=== PATIENT | male | born 1940 | race Caucasian/White ===

== ENCOUNTER 2020-07-28 07:29 | Emergency (ER) | payer MEDICARE, SELFPAY ==
[2020-07-28] VITALS (9 sets, daily range): BP systolic 188–224; BP diastolic 83–103; PULSE 45–77; RESP 13–20; TEMP 37.1; O2SAT 97–100; BMI 21.1
--- NOTE | 2020-07-28 08:31 | ED.ABDPAIN ---
HPI - Abdominal Pain General Chief Complaint: Abdominal Pain Stated Complaint: hernia is bothering him Time Seen by Provider: 07/28/20 08:28 Source: patient Mode of arrival: Ambulatory Limitations: no limitations History of Present Illness HPI narrative: This is a pleasant 79-year-old male who comes in with complaint of hernia that is causing him pain. Patient states he has had a right sided groin hernia for several months. He states it will typically self reduce and has not been painful. Today it did not self reduce and was painful. Patient came for evaluation. While he has been lying in the bed waiting to be seen he states that it reduced and is no longer tender painful. He states no fevers or chills. He denies any nausea or vomiting. He denies any abdominal pain is states all of his pain was at the area of the hernia. Patient states that he has not had a bowel movement for 24 hours but has been passing gas. He states today he did have some radiation into the testicle but it has since resolved. On prior episodes he has not had any pain into the testicle. Patient has a history of CABG, he takes an aspirin daily and denies other anticoagulants, he takes medications for hypertension, dyslipidemia and bmu-[id number] diabetes. Patient is currently asymptomatic. He is very interested in having this repaired. Related Data Home Medications Medication Instructions Recorded Confirmed CA PANTOTHENATE/FOLIC ACID/VIT 1 tab PO QDAY #0 01/16/11 (MULTIVITAMIN) [Glyburide] 10 mg PO HS #0 01/16/11 [Glyburide] 20 mg PO QAM #0 01/16/11 [LODIPINE] 2.5 mg #0 01/16/11 aspirin 325 mg PO QDAY #0 01/16/11 atenolol 25 mg PO QDAY #0 01/16/11 atorvastatin [Lipitor] 40 mg PO QDAY #0 01/16/11 lisinopril 40 mg PO QDAY #0 01/16/11 amlodipine 2.5 mg tablet 2.5 mg PO DAILY 04/29/19 04/29/19 glipizide 10 mg tablet 40 mg PO DAILY tab 04/29/19 04/29/19 Allergies Allergy/AdvReac Type Severity Reaction Status Date / Time No Known Drug Allergies Allergy Verified 07/28/20 07:56 Review of Systems Review of Systems ROS Unobtainable: All systems reviewed & are unremarkable except as noted in HPI and below Patient History Medical History (Updated 07/28/20 @ 11:12 by Tenisha Tiwari DO) Diabetes DJD of shoulder Dyslipidemia Hypertension Shoulder impingement syndrome Surgical History (Updated 07/28/20 @ 09:27 by Tenisha Tiwari DO) Hx of CABG Social History Smoking Status: Never smoker Smoking Status: Never smoker alcohol intake frequency: 0-2 drinks per day Alcohol type: hard liquor Substance Use Type: does not use Exam Narrative Exam Narrative: GENERAL: Alert and oriented x three, thin, elderly male in mild distress. HEENT: Head normocephalic, atraumatic, EOMI, pupils reactive, face symmetric, moist mucous membranes NECK: Supple, full range of motion CARDIOVASCULAR: Regular rate and rhythm without murmurs, rubs or gallops. RESPIRATORY: Breath sounds equal bilaterally, no wheezes rales or rhonchi. ABDOMEN: Soft, nontender to palpation. Unable to palpate a inguinal hernia on the left or right, no clear defect felt in the right inguinal region or groin. Patient states it was initially on the right and states that the swelling/lump has resolved. hyperactive bowel sounds all 4 quadrants. No tympany. Non-distended abdomen. No guarding or rebound, rigidity, no mass : No CVA tenderness EXTREMITIES: Normal range of motion, no clubbing or edema. Neurovascularly intact NEUROLOGICAL: Cranial nerves II through XII grossly intact. Moving all extremities SKIN: Warm, dry, no petechiae, no rashes or lesions. Initial Vital Signs Initial Vital Signs: Vital Signs Temperature 98.7 F 07/28/20 07:56 Pulse Rate 66 07/28/20 07:56 Respiratory Rate 16 07/28/20 07:56 Blood Pressure 210/103 H 07/28/20 07:56 Pulse Oximetry 100 07/28/20 07:56 Course Orders Ordered: ED Orders 07/28/20 10:22 COVID19 Stat 07/28/20 10:23 EKG-12 Lead Stat Discontinued Medications Hydralazine HCl (Hydralazine 20 Mg/Ml Vial) 10 mg IV NOW ONE Stop: 07/28/20 10:24 Last Admin: 07/28/20 10:29 Dose: 10 mg Documented by: ANUJA Sodium Chloride (Normal Saline 0.9%) 1,000 mls @ 1,000 mls/hr IV BOLUS ONE Stop: 07/28/20 11:22 Last Infusion: 07/28/20 11:22 Dose: 0 mls/hr Documented by: Admin: 07/28/20 10:28 Dose: 1,000 mls/hr Documented by: ANUJA Consultations Consultation #1: Spoke with Dr. Durant who is covering for [facility], patient's baseline creatinine is 1.5 she states his potassiums all have been above 5 regularly typically are in the 5.5 range. Time: 10:50 Vital Signs Vital signs: Vital Signs - 8 hr 07/28/20 10:45 07/28/20 10:52 07/28/20 11:00 Pulse Rate 64 69 69 Respiratory Rate 13 18 17 Blood Pressure 224/100 H 215/93 H 222/91 H Pulse Oximetry 99 99 98 07/28/20 11:15 Pulse Rate 77 Respiratory Rate 20 Blood Pressure 215/91 H Pulse Oximetry 98 MDM - Abdominal Pain Lab Data Attestation: I reviewed the patient's lab results. Result diagrams: 07/28/20 08:21 07/28/20 08:21 Labs: Lab Results 07/28/20 07/28/20 07/28/20 Range/Units 08:21 08:21 10:22 WBC 8.9 (4.5-11.0) X10^3/uL RBC 4.51 (4.5-5.9) X10^6/uL Hgb 14.2 (13.5-17.5) g/dL Hct 42.7 (41-53) % MCV 94.5 (80-100) fL MCH 31.4 (26-34) PG MCHC 33.3 (30-36) % RDW 13.2 (11.6-14.8) % Plt Count 323 (150-400) X10^3/uL Neut % (Auto) 60.1 (50-75) % Lymph % (Auto) 25.6 (25-40) % Love % (Auto) 9.2 (3-14) % Eos % (Auto) 4.3 H (2-4) % Baso % (Auto) 0.8 (0-2) % Neut # (Auto) 5300 (5137-3749) /uL Lymph # (Auto) 2300 (0205-7869) /uL Love # (Auto) 800 (0-900) /uL Eos # (Auto) 400 (0-450) /uL Baso # (Auto) 100 (0-100) /uL Sodium 133 L (137-145) mmol/L Potassium 5.3 H (3.4-5.1) mmol/L Chloride 103 (98-107) mmol/L Carbon Dioxide 24 (22-32) mmol/L BUN 35 H (9-20) mg/dL Creatinine 1.60 H (0.66-1.25) mg/dL Estimated GFR 41.8 L (>60) mL/min BUN/Creatinine Ratio 21.9 (6-22) Glucose 320 H (80-110) mg/dL Calcium 9.5 (8.4-10.2) mg/dL Total Bilirubin 1.1 (0.2-1.3) mg/dL AST 28 (17-59) IU/L ALT 17 (<50) IU/L Alkaline Phosphatase 96 (38-126) U/L Total Protein 8.5 H (6.3-8.2) g/dL Albumin 4.4 (3.5-5.0) g/dL Globulin 4.1 (1.7-4.1) g/dL Albumin/Globulin Ratio 1.1 (1.0-2.8) Lipase 253 (23-300) U/L SARS-CoV-2 (PCR) Negative (Negative) Imaging Data Abdominal x-ray: Radiologist's Impression: [address] [id number] ReportSigned Patient: Basil Goel LMR#: [id number]: [id number]:[id number]/Sex: 79 / MDate of Service: 07/28/20Loc: EDAccession Number: [id number] Procedure: XR abdomen min 2V Ordering Provider: Tenisha Tiwari D.O. PROCEDURE: XR ABDOMEN MIN 2V INDICATIONS: abdominal pain, hernia TECHNIQUE: 2 views of the abdomen were acquired. COMPARISON: None. FINDINGS: Surgical changes and devices: Surgical clips noted in the midline lower chest. Bowel: No pneumoperitoneum. There is a segment of mildly distended small bowel in the midline abdomen best seen on the supine view. No evidence for abnormal wall thickening. Suggestion of small air-fluid level on upright view. Moderate fecal material seen throughout the colon and rectum. Soft tissues: No masses; visualized solid organ contours appear normal in size. No suspicious abdominal calcifications. Bones: No suspicious bony abnormalities. IMPRESSION: Segment of air-filled, mildly distended loop of small bowel in the mid abdomen without evidence for wall thickening. Otherwise, nonobstructive bowel gas pattern. Moderate fecal load seen throughout the colon and rectum. If there is clinical concern for strangulated/incarcerated hernia, consider further evaluation with CT. Dictated by: Mason Perez M.D. on 07/28/2020 at 9:59 Approved by: Mason Perez M.D. on 07/28/2020 at 10:03 MDM Narrative Medical decision making narrative: 79 year old male with complaint of non-reducible hernia that reduced in the department. Patient is hypertensive had minimal improvement with medication but this not wish to stay. Encouraged to continue his home medications. He does asymptomatic. Patient labs are consistent with prior after discussion with his primary care team. Discharge Plan Departure Patient Disposition: Home Clinical Impression: Inguinal hernia, right, Hypertension Instructions: DI for Groin Hernia Activity Restrictions/Additional Instructions: Follow up with Dr. Huerta, call for an appointment today about having your hernia repaired. Continue your home medications as prescribed. Return to ER for fevers, recurrent severe hernia that is painful or will not reduce easily, abdominal pain, testiclular pain, persistent vomiting, if you not having any bowel movements or passing any flatus or other new or concerning symptoms. Prescriptions: No Action aspirin 325 MG tablet,delayed release (DR/EC) 325 mg PO QDAY Qty: 0 RF: 0 CA PANTOTHENATE/FOLIC ACID/VIT (MULTIVITAMIN) 1 tab PO QDAY Qty: 0 RF: 0 atenolol 25 MG tablet 25 mg PO QDAY Qty: 0 RF: 0 atorvastatin [Lipitor] 40 MG tablet 40 mg PO QDAY Qty: 0 RF: 0 lisinopril 40 MG tablet 40 mg PO QDAY Qty: 0 RF: 0 [LODIPINE] 2.5 mg Qty: 0 RF: 0 [Glyburide] 20 mg PO QAM Qty: 0 RF: 0 [Glyburide] 10 mg PO HS Qty: 0 RF: 0 glipizide 10 mg tablet 40 mg PO DAILY RF: 0 amlodipine 2.5 mg tablet 2.5 mg PO DAILY RF: 0 Referrals: Angelito Huerta MD [Physician] - Rush Jeffries MD [Primary Care Provider] -
--- NOTE | 2020-07-28 09:24 | DI.RAD.S_ITS ---
PROCEDURE: XR ABDOMEN MIN 2V INDICATIONS: abdominal pain, hernia TECHNIQUE: 2 views of the abdomen were acquired. COMPARISON: None. FINDINGS: Surgical changes and devices: Surgical clips noted in the midline lower chest. Bowel: No pneumoperitoneum. There is a segment of mildly distended small bowel in the midline abdomen best seen on the supine view. No evidence for abnormal wall thickening. Suggestion of small air-fluid level on upright view. Moderate fecal material seen throughout the colon and rectum. Soft tissues: No masses; visualized solid organ contours appear normal in size. No suspicious abdominal calcifications. Bones: No suspicious bony abnormalities. IMPRESSION: Segment of air-filled, mildly distended loop of small bowel in the mid abdomen without evidence for wall thickening. Otherwise, nonobstructive bowel gas pattern. Moderate fecal load seen throughout the colon and rectum. If there is clinical concern for strangulated/incarcerated hernia, consider further evaluation with CT. Dictated by: Mason Perez M.D. on 07/28/2020 at 9:59 Approved by: Mason Perez M.D. on 07/28/2020 at 10:03
[2020-07-28 09:33] LABS: Add Manual Diff / Slide Review NO; Basophils Absolute Auto 100 /uL (0-100); Basophils Percent Auto 0.8 % (0-2); Eosinophils Absolute Auto 400 /uL (0-450); Eosinophils Percent Auto 4.3 % (2-4); Hematocrit 42.7 % (41-53); Hemoglobin 14.2 g/dL (13.5-17.5); Lymphocytes Absolute Auto 2300 /uL (1100-4500); Lymphocytes Percent Auto 25.6 % (25-40); Mean Corpuscular HGB Conc 33.3 % (30-36); Mean Corpuscular Hemoglobin 31.4 PG (26-34); Mean Corpuscular Volume 94.5 fL (80-100); Monocytes Absolute Auto 800 /uL (0-900); Monocytes Percent Auto 9.2 % (3-14); Neutrophils Absolute Auto 5300 /uL (1500-7000); Neutrophils Percent Auto 60.1 % (50-75); Platelet Count 323 X10^3/uL (150-400); Red Blood Cell Count 4.51 X10^6/uL (4.5-5.9); Red Cell Distribution Width 13.2 % (11.6-14.8); White Blood Cell Count 8.9 X10^3/uL (4.5-11.0)
[2020-07-28 09:38] LABS: Alanine Aminotransferase 17 IU/L (<50); Albumin 4.4 g/dL (3.5-5.0); Albumin Globulin Ratio 1.1 (1.0-2.8); Alkaline Phosphatase 96 U/L (38-126); Aspartate Aminotransferase 28 IU/L (17-59); BUN Creatinine Ratio 21.9 (6-22); Bilirubin Total 1.1 mg/dL (0.2-1.3); Blood Urea Nitrogen 35 mg/dL (9-20); Calcium 9.5 mg/dL (8.4-10.2); Carbon Dioxide 24 mmol/L (22-32); Chloride 103 mmol/L (98-107); Estimated Glomerular Filt Rate 41.8 mL/min (>60); Globulin 4.1 g/dL (1.7-4.1); Glucose 320 mg/dL (80-110); HEMOLYSIS 26 (0-50); Lipase 253 U/L (23-300); Potassium 5.3 mmol/L (3.4-5.1); Sodium 133 mmol/L (137-145); Total Protein 8.5 g/dL (6.3-8.2)
[2020-07-28] MEDS: SODIUM CHLORIDE 0.9% 1,000 ML 1000 ML IV (10:28)
[2020-07-28] MEDS: HYDRALAZINE 20 MG/ML VIAL 10 MG IV (10:29)
[2020-07-28 10:54] LABS: COVID19 -Nasal RAPID Negative (Negative)
== END 2020-07-28 11:23 | disposition home or self-care (01) ==
PROVIDERS: Emergency Provider Emergency Medicine; Family Provider Family Medicine; PCP Family Medicine
DX: K40.90 Unilateral inguinal hernia, without obstruction or gangrene, not specified as recurrent (principal); I10 Essential (primary) hypertension; Z79.01 Long term (current) use of anticoagulants; E78.5 Hyperlipidemia, unspecified; E11.9 Type 2 diabetes mellitus without complications; Z20.822 Contact with and (suspected) exposure to COVID-19
CPT/HCPCS: 36415; 74019; 80053; 83690; 85025; 87635; 93005; 93010; 96361; 96374; 99283; 99284; C9803; J0360

== ENCOUNTER → 2020-08-15 09:33 | Outpatient (CLI) | payer MEDICARE, SELFPAY ==
[2020-08-15 11:04] LABS: COVID19 -Nasal RAPID Negative (Negative)
== END ==
PROVIDERS: Family Provider Family Medicine; PCP Family Medicine; Visit Provider Nurse Practitioner Family
DX: Z01.812 Encounter for preprocedural laboratory examination (principal); Z20.822 Contact with and (suspected) exposure to COVID-19
CPT/HCPCS: 87635; C9803

== ENCOUNTER → 2020-08-17 07:35 | Outpatient (CLI) | payer MEDICARE, SELFPAY ==
--- NOTE | 2020-08-17 14:21 | DI.NM.S_ITS ---
DATE OF SERVICE: 08/17/20 PROCEDURE PERFORMED: Pharmacologic vasodilator stress and rest myocardial perfusion imaging with gating to assess ejection fraction and regional wall motion. ORDERING PROVIDER: Dr. Rush Jeffries INDICATIONS: The patient is an 79-year-old male with known coronary artery disease with previous myocardial infarction. PHARMACOLOGIC VASODILATOR STRESS: Per protocol, 0.4 mg of regadenoson was infused with a slightly accentuated heart rate response with a resting heart rate of 63 BPM increasing to a maximum of 110 BPM. With this, he had moderate dyspnea, but no chest discomfort. His resting ECG shows sinus rhythm with frequent PACs, at times in couplets. With stress, his rhythm becomes more regular and he develops 1-2 mm of flat to downsloping ST depression predominantly in the inferolateral leads, concerning for ischemia. There were no additional arrhythmias. Per protocol, 26.3 millicuries of technetium-99m Myoview was injected. The patient was imaged 15 minutes later using a gated SPECT acquisition protocol. Earlier in the day while at rest, he had been injected with 10.7 millicuries of technetium-99m Myoview and had been imaged 30 minutes later, again using a gated SPECT acquisition protocol. FINDINGS: RAW DATA: There is fair myocardial tracer uptake although image quality is somewhat suboptimal on the gated scans. Lung/heart ratio was normal at 0.16 with a normal TID ratio of 0.76. QUANTITATED GATED SPECT: Post-stress ejection fraction is estimated at 59% with hypokinesis in the proximal to mid inferior wall, extending into the inferolateral wall. The resting ejection fraction is estimated at 57% with an identical contraction pattern without any clear areas of improvement. Resting end-diastolic volume is mildly increased at 120 mL. MYOCARDIAL PERFUSION IMAGING: Post-stress supine images show a severe perfusion defect in the proximal to mid inferior wall with a mild defect extending into the distal inferior wall, but sparing the apex. This defect extends somewhat into the lateral wall proximally. The prone images are somewhat compromised by some subdiaphragmatic attenuation, but this inferior perfusion defect appears to persist on the prone images. The resting images show a very similar perfusion pattern although with slight improvement noted at the periphery of the defect, but it is a predominantly fixed defect. IMPRESSION: 1. Abnormal myocardial perfusion study. 2. Predominantly fixed but slightly reversible perfusion defect in the proximal to mid inferior wall, extending into the proximal lateral wall consistent with previous myocardial infarction with probable mild bandar-infarct ischemia. 3. Preserved left ventricular systolic function, but with an inferior and inferolateral wall motion abnormality corresponding to the perfusion defect. Left ventricular volumes are borderline increased. 4. No chest discomfort with pharmacologic vasodilator stress although with significant ST-segment shifts suggesting some degree of ischemia. 5. Compared to the previous myocardial perfusion study of March 08, 2011, a near identical perfusion pattern was seen previously, although the defect now appears to have shifted somewhat more laterally. Previous left ventricular volume was estimated at 120 mL as well. Thus, there has been virtually no significant change since the previous study. Basil Goel - DANIELLE/terrence/cs doc#: [id number]/job#: [id number] dd: 08/17/2020 13:04:00 dt: 08/17/2020 14:05:00 DICTATING /COPIES TO: Rush Galaviz MD COPIES MNE: CATHERINE;
== END ==
PROVIDERS: Family Provider Family Medicine; PCP Family Medicine; Referring Provider Family Medicine; Visit Provider Family Medicine
DX: R94.39 Abnormal result of other cardiovascular function study (principal); I25.10 Atherosclerotic heart disease of native coronary artery without angina pectoris; I25.2 Old myocardial infarction
CPT/HCPCS: 78452; 93017; A9502; J2785

== ENCOUNTER 2022-05-29 10:12 | Emergency (ER) | payer MEDICARE, SELFPAY ==
[2022-05-29 10:15] VITALS: BP 215/94; PULSE 87; RESP 17; TEMP 36.6; O2SAT 99
--- NOTE | 2022-05-29 10:30 | DI.RAD.S_ITS ---
PROCEDURE: XR HIP W PEL IF DONE RT 2V INDICATIONS: fall TECHNIQUE: AP pelvis with lateral view(s) of the right hip(s). COMPARISON: None. FINDINGS: Bones: There is mild irregularity of the right medial superior and inferior pubic rami suggestive of nondisplaced impaction fractures. The right femur and left pelvis appear intact. Mild medial joint space loss in both femoroacetabular joints. Soft tissues: The visualized bowel gas pattern is normal. No suspicious soft tissue calcifications. IMPRESSION: 1. Findings suspicious for nondisplaced impacted inferior and superior right pubic rami fractures. 2. Proximal femur is intact without dislocation. Dictated by: Briana Quiroz M.D. on 05/29/2022 at 12:07 Approved by: Briana Quiroz M.D. on 05/29/2022 at 12:08
--- NOTE | 2022-05-29 10:33 | DI.RAD.S_ITS ---
PROCEDURE: XR CHEST 1V INDICATIONS: fall TECHNIQUE: One view of the chest was acquired. COMPARISON: [facility], , CHEST 1 VIEW, 01/16/2011, 11:35. FINDINGS: Surgical changes and devices: Post median sternotomy and CABG. Lungs and pleura: Lungs are clear. No pleural effusions or pneumothorax. Mediastinum: Mediastinal contours appear normal. Heart size is normal. Bones and chest wall: No suspicious bony lesions. Overlying soft tissues appear unremarkable. IMPRESSION: No acute cardiopulmonary abnormality identified. Dictated by: Jam Sandoval M.D. on 05/29/2022 at 11:16 Approved by: Jam Sandoval M.D. on 05/29/2022 at 11:17
--- NOTE | 2022-05-29 10:45 | ED_ITS ---
HPI - Skin/Abscess/Foreign Bdy General Chief complaint: Skin/Abscess/Foreign Body Stated complaint: GLF few days ago, Rt hip pain Time Seen by Provider: 05/29/22 10:23 Source: EMS Mode of arrival: EMS History of Present Illness HPI narrative: Patient is an 81-year-old male history of hypertension diabetes, CABG, presents today for mechanical fall 11 days ago and right foot redness starting today. He says he was out walking around the park he was looking at something his feet stumbled and he fell down onto his right right hip. Since then he has been ambulating some but really getting around by office chair and other means. He did not hit his head he did not lose consciousness. He is no chest pain or palpitations. He did not pass out. He is not on anticoagulation but does take aspirin daily. He is not had fever or chills. He is also noticed some redness in his left great toe. He is able to bear weight and walk on it. He is a remote history of gout. He said previously when he had gout he just put ice on it and went away. Related Data Home Medications Medication Instructions Recorded Confirmed amlodipine 2.5 mg tablet 2.5 mg PO DAILY 04/29/19 05/29/22 glipizide 10 mg tablet 5 mg PO DAILY 08/03/20 05/29/22 hydrochlorothiazide 25 mg tablet 25 mg PO DAILY 08/03/20 05/29/22 omega-3 fatty acids 1,000 mg 1,000 mg PO DAILY 08/03/20 08/03/20 capsule (Fish Oil Concentrate) aspirin 81 mg capsule 81 mg PO DAILY 05/29/22 05/29/22 lisinopril 10 mg tablet 10 mg PO DAILY 05/29/22 05/29/22 Previous Rx's Medication Instructions Recorded allopurinol 200 mg tablet 200 mg PO BID #14 tabs 05/29/22 cephalexin 500 mg capsule 500 mg PO BID #14 caps 05/29/22 hydrocodone 5 mg-acetaminophen 325 1 tab PO Q6H PRN pain #10 tabs 05/29/22 mg tablet Allergies Allergy/AdvReac Type Severity Reaction Status Date / Time No Known Drug Allergies Allergy Verified 05/29/22 10:33 Review of Systems Review of Systems Narrative: GENERAL: Denies chills,fever HEENT: Denies throat pain RESPIRATORY: Denies dyspnea, cough, wheezing CARDIOVASCULAR: Denies chest pain, palpitations GASTROINTESTINAL: Denies nausea, vomiting MUSCULOSKELETAL: See HPI SKIN: No rash, no laceration, no pruritus NEUROLOGIC: Denies weakness, dizziness, headache, numbness 8 point review of systems is negative except for those stated above and HPI Patient History Medical History Diabetes DJD of shoulder Dyslipidemia Hypertension Shoulder impingement syndrome Surgical History Hx of CABG Family History Grandfather Diabetes mellitus Social History marital status: household members: spouse occupational status: employed Smoking Status: Never smoker alcohol intake: current substance use type: does not use Smoking Status: Never smoker alcohol intake frequency: 0-2 drinks per day Alcohol type: hard liquor Substance Use Type: does not use Exam Initial Vital Signs Initial Vital Signs: Vital Signs Temperature 97.9 F 05/29/22 10:15 Pulse Rate 87 05/29/22 10:15 Respiratory Rate 17 05/29/22 10:15 Blood Pressure 215/94 H 05/29/22 10:15 Pulse Oximetry 99 05/29/22 10:15 Oxygen Delivery Method 05/29/22 10:15 GENERAL: Alert pleasant 81-year-old no acute distress HEENT: Head atraumatic,EOMI, pupils reactive, face symmetric, moist mucous membranes CARDIOVASCULAR: Regular rate and rhythm without murmurs, rubs or gallops. RESPIRATORY: Breath sounds equal bilaterally, no wheezes rales or rhonchi. ABDOMEN: Soft, nontender. Normoactive bowel sounds all 4 quadrants. No guarding or rebound. EXTREMITIES: Normal range of motion, no clubbing or edema. Neurovascularly intact. Minimal right hip tenderness. No pain to pelvis no pain with rotating femur. Distal radial pedal pulse intact. NEUROLOGICAL: Alert and oriented x4. SKIN: Left MTP mildly erythematous slightly swollen. No circumferential erythema or streaking. Distal pedal pulse intact. Course Orders Ordered: ED Orders 05/29/22 10:50 XR foot RT min 3V Stat 05/29/22 12:13 EKG-12 Lead Stat 05/29/22 12:16 CT pelvis wo con Stat Vital Signs Vital signs: Vital Signs - 8 hr 05/29/22 15:11 Pulse Rate 67 Respiratory Rate 17 Blood Pressure 167/78 H Pulse Oximetry 99 Oxygen Delivery Method Room Air MDM - Skin/Abscess/Foreign Bdy Lab Data Result diagrams: 05/29/22 10:41 05/29/22 10:41 Labs: Lab Results 05/29/22 05/29/22 Range/Units 10:41 10:41 WBC 9.0 (4.5-11.0) X10^3/uL RBC 3.89 L (4.5-5.9) X10^6/uL Hgb 12.2 L (13.5-17.5) g/dL Hct 35.4 L (41-53) % MCV 91.0 (80-100) fL MCH 31.5 (26-34) PG MCHC 34.6 (30-36) % RDW 13.4 (11.6-14.8) % Plt Count 389 (150-400) X10^3/uL Neut % (Auto) 69.7 (50-75) % Lymph % (Auto) 15.4 L (25-40) % [place] % (Auto) 9.8 (3-14) % Eos % (Auto) 3.9 (2-4) % Baso % (Auto) 1.2 (0-2) % Neut # (Auto) 6300 (5146-3406) /uL Lymph # (Auto) 1400 (7837-5008) /uL [place] # (Auto) 900 (0-900) /uL Eos # (Auto) 400 (0-450) /uL Baso # (Auto) 100 (0-100) /uL Sodium 141 (137-145) mmol/L Potassium 4.5 (3.4-5.1) mmol/L Chloride 107 (98-107) mmol/L Carbon Dioxide 20 L (22-32) mmol/L BUN 46 H (9-20) mg/dL Creatinine 1.59 H (0.66-1.25) mg/dL Estimated GFR 43 L (>60) mL/min BUN/Creatinine Ratio 28.9 H (6-22) Glucose 208 H (80-110) mg/dL Uric Acid 7.5 (3.5-8.5) mg/dL Calcium 9.2 (8.4-10.2) mg/dL Total Bilirubin 1.1 (0.2-1.3) mg/dL AST 20 (17-59) IU/L ALT 20 (<50) IU/L Alkaline Phosphatase 154 H (38-126) U/L Total Protein 8.6 H (6.3-8.2) g/dL Albumin 4.2 (3.5-5.0) g/dL Globulin 4.4 H (1.7-4.1) g/dL Albumin/Globulin Ratio 1.0 (1.0-2.8) Imaging Data Chest x-ray: Radiologist's Impression: : Basil Goel MR#: [id number] : 1940 Acct:[id number] Age/Sex: 81 / M Date of Service: 05/29/22 Loc: ED Accession Number: [id number] ?? Procedure: XR chest 1V Ordering Provider: Irma Marroquin D.O. PROCEDURE:? XR CHEST 1V ? INDICATIONS:? fall ? TECHNIQUE:? One view of the chest was acquired.? ? COMPARISON:? [facility], , CHEST 1 VIEW, 01/16/2011, 11:35. ? FINDINGS:? ? Surgical changes and devices:? Post median sternotomy and CABG. ? Lungs and pleura:? Lungs are clear.? No pleural effusions or pneumothorax.? ? Mediastinum:? Mediastinal contours appear normal.? Heart size is normal.? ? Bones and chest wall:? No suspicious bony lesions.? Overlying soft tissues appear unremarkable.? ? IMPRESSION:? No acute cardiopulmonary abnormality identified. ? ? ? Dictated by: Jam Sandoval M.D. on 05/29/2022 at 11:16 ? ? Approved by: Jam Sandoval M.D. on 05/29/2022 at 11:17 ? ct pelvis: Radiologist's Impression: Signed Patient: Basil Goel MR#: [id number] : 1940 Acct:[id number] Age/Sex: 81 / M Date of Service: 05/29/22 Loc: ED Accession Number: [id number] ?? Procedure: CT pelvis wo con Ordering Provider: Botnick,Irma D.O. PROCEDURE:? CT PEL WO CON ? INDICATIONS:? proablbe pelvic fracture ? TECHNIQUE:? Noncontrast 3 mm axial sections acquired through the bony pelvis, with coronal and sagittal reformatting.? ? COMPARISON:? [facility], CR, XR HIP W PEL IF DONE RT 2V, 05/29/2022, 10:33. ? FINDINGS:? Image quality:? Excellent.? ? Bones:? Right pubic rami fractures with mild displacement. ? No acetabular fracture.? No hip fracture.? No suspicious lesion.? Moderate hip DJD. ? Soft tissues:? Small hematoma adjacent to the right pubic symphysis.? Trace presacral edema.? ? Prostatomegaly.? Diverticulosis.? Calcified atherosclerotic plaque. ? ? IMPRESSION:? Right pubic rami fractures with mild displacement. ? Small hematoma adjacent to the right pubic symphysis. ? ? Dictated by: Jam Sandoval M.D. on 05/29/2022 at 13:56 ? ? Approved by: Jam Sandoval M.D. on 05/29/2022 at 14:02 ? Extremity x-ray #1: Radiologist's Impression: [place] [id number] XRay Report Signed Patient: Basil Goel MR#: [id number] : 1940 Acct:[id number] Age/Sex: 81 / M Date of Service: 05/29/22 Loc: Accession Number: [id number] ?? Procedure: XR foot RT min 3V Ordering Provider: Irma Marroquin D.O. PROCEDURE:? XR FOOT RT MIN 3V ? INDICATIONS:? big toe pain reddness ? TECHNIQUE:? Three views of the foot were acquired.? ? COMPARISON:? None. ? FINDINGS:? ? Bones:? No fractures or dislocations.? No suspicious bony lesions.? No visible bony erosions. ? Soft tissues:? No tibiotalar joint effusion.? Achilles tendon appears normal.? Moderate dorsal forefoot soft tissue swelling.? No underlying foreign body or soft tissue gas. ? ? IMPRESSION:? ? 1. No visible bony abnormalities. ? 2. Soft tissue swelling without underlying soft tissue gas.? ? ? Dictated by: Briana Quiroz M.D. on 05/29/2022 at 12:09 ? ? Extremity x-ray #2: Radiologist's Impression: XRay Report Signed Patient: Basil Goel MR#: [id number] : 1940 Acct:[id number] Age/Sex: 81 / M Date of Service: 05/29/22 Loc: ED Accession Number: [id number] ?? Procedure: XR hip w pel if done RT 2V Ordering Provider: Irma Marroquin D.O. PROCEDURE:? XR HIP W PEL IF DONE RT 2V ? INDICATIONS:? fall ? TECHNIQUE:? AP pelvis with lateral view(s) of the right hip(s).? ? COMPARISON:? None. ? FINDINGS:? ? Bones:? There is mild irregularity of the right medial superior and inferior pubic rami suggestive of nondisplaced impaction fractures.? The right femur and left pelvis appear intact.? Mild medial joint space loss in both femoroacetabular joints. ? Soft tissues:? The visualized bowel gas pattern is normal.? No suspicious soft tissue calcifications.? ? ? IMPRESSION:? ? 1. Findings suspicious for nondisplaced impacted inferior and superior right pubic rami fractures. ? 2. Proximal femur is intact without dislocation.? Dictated by: Briana Quiroz M.D. on 05/29/2022 at 12:07 ?? ECG Data Interpretation: Normal sinus rhythm rate 57 IN interval 50 QRS 90 QTC 387 no changes MDM Narrative Medical decision making narrative: A sounds the patient had a mechanical fall. No head injury or loss of consciousness. He is mentating and acting appropriate. X-rays are negative. Possible gout versus cellulitis on his left great toe. He is not septic febrile. Blood work is overall reassuring. He is noted be quite hypertensive here in the ER he states that is normal for him it has actually come down without any sort of intervention. Creatinine is stable but he does have CKD. Patient is found to have pubic rami fractures. He is had them probably for 11 days. He is ambulatory with a walker. At this time discharge home with orthopedic follow-up. Discharge Plan Departure Patient Disposition: Home Clinical Impression: Gout, Fracture of right superior pubic ramus, Fracture of right inferior pubic ramus Instructions: Pelvic Fracture, DI for Gout Activity Restrictions/Additional Instructions: *You have been diagnosed with pelvic fracture, probable gout *What to do: At this time ambulate as tolerated with a walker. Take pain medic ation as needed. Monitor the redness of your foot as well. Elevate and ice if possible. *Continue to take medications as directed [place] 1 tablet every 6 hours if needed for severe pain. Allopurinol 200 mg once daily Keflex 500 mg twice a day for 7 days *Follow up with your primary care provider in 2-3 days or call [phone] Please call orthopedics and schedule follow-up appointment to be sure that fractures are healing-- SENT TO [facility] *Return to ER if you should have increasing redness pain swelling fever [or] any new, worsening or concerning symptoms CONTROLLED SUBSTANCE DISCHARGE (Narcotoic/benzodiazepine/Flexeril/Phenergan) 1. You have been prescribed narcotic medications, it does have acetaminophen/Tylenol/paracetamol in it, DO NOT TAKE MORE THAN 4,00mg in 24 hours of Tylenol. TRAMADOL DOES NOT CONTAIN TYLENOL 2. Please understand that we cannot provide further refills of narcotics, benzodiazepines or controlled substances through the ED and her pain management will need to be through your provider. 3. While on these medications you cannot drive or operate heavy machinery. 4. You cannot sign legal documents or perform any duties such as this. 5. As long as you're taking opiate pain medications he should also be taking a stool softener such as Colace, Dulcolax, MiraLAX or prune juice, to help avoid constipation. Prescriptions: New allopurinol 200 mg tablet 200 mg PO BID Qty: 14 0RF cephalexin 500 mg capsule 500 mg PO BID Qty: 14 0RF hydrocodone-acetaminophen 5-325 mg tablet 1 tab PO Q6H PRN (Reason: pain) Qty: 10 0RF No Action hydrochlorothiazide 25 mg tablet 25 mg PO DAILY omega-3 fatty acids [Fish Oil Concentrate] 1,000 mg capsule 1,000 mg PO DAILY lisinopril 10 mg tablet 10 mg PO DAILY aspirin 81 mg Capsule 81 mg PO DAILY amlodipine 2.5 mg tablet 2.5 mg PO DAILY glipizide 10 mg tablet 5 mg PO DAILY Referrals: [facility] [Provider Group] Rush Jeffries MD [Primary Care Provider] - Visit Report Forms: Patient Portal/API
[2022-05-29 10:50] LABS: Add Manual Diff / Slide Review NO; Basophils Absolute Auto 100 /uL (0-100); Basophils Percent Auto 1.2 % (0-2); Eosinophils Absolute Auto 400 /uL (0-450); Eosinophils Percent Auto 3.9 % (2-4); Hematocrit 35.4 % (41-53); Hemoglobin 12.2 g/dL (13.5-17.5); Lymphocytes Absolute Auto 1400 /uL (1100-4500); Lymphocytes Percent Auto 15.4 % (25-40); Mean Corpuscular HGB Conc 34.6 % (30-36); Mean Corpuscular Hemoglobin 31.5 PG (26-34); Monocytes Absolute Auto 900 /uL (0-900); Monocytes Percent Auto 9.8 % (3-14); Neutrophils Absolute Auto 6300 /uL (1500-7000); Neutrophils Percent Auto 69.7 % (50-75); Platelet Count 389 X10^3/uL (150-400); Red Blood Cell Count 3.89 X10^6/uL (4.5-5.9); Red Cell Distribution Width 13.4 % (11.6-14.8)
--- NOTE | 2022-05-29 10:50 | DI.RAD.S_ITS ---
PROCEDURE: XR FOOT RT MIN 3V INDICATIONS: big toe pain reddness TECHNIQUE: Three views of the foot were acquired. COMPARISON: None. FINDINGS: Bones: No fractures or dislocations. No suspicious bony lesions. No visible bony erosions. Soft tissues: No tibiotalar joint effusion. Achilles tendon appears normal. Moderate dorsal forefoot soft tissue swelling. No underlying foreign body or soft tissue gas. IMPRESSION: 1. No visible bony abnormalities. 2. Soft tissue swelling without underlying soft tissue gas. Dictated by: Briana Quiroz M.D. on 05/29/2022 at 12:09 Approved by: Briana Quiroz M.D. on 05/29/2022 at 12:10
[2022-05-29 11:01] LABS: Alanine Aminotransferase 20 IU/L (<50); Albumin 4.2 g/dL (3.5-5.0); Alkaline Phosphatase 154 U/L (38-126); Aspartate Aminotransferase 20 IU/L (17-59); BUN Creatinine Ratio 28.9 (6-22); Bilirubin Total 1.1 mg/dL (0.2-1.3); Blood Urea Nitrogen 46 mg/dL (9-20); Calcium 9.2 mg/dL (8.4-10.2); Carbon Dioxide 20 mmol/L (22-32); Chloride 107 mmol/L (98-107); Estimated Glomerular Filt Rate 43 mL/min (>60); Globulin 4.4 g/dL (1.7-4.1); Glucose 208 mg/dL (80-110); HEMOLYSIS < 15 (0-50); Potassium 4.5 mmol/L (3.4-5.1); Sodium 141 mmol/L (137-145); Total Protein 8.6 g/dL (6.3-8.2); Uric Acid 7.5 mg/dL (3.5-8.5)
[2022-05-29 11:41] VITALS: BP 182/92; PULSE 57; RESP 18; O2SAT 99
--- NOTE | 2022-05-29 12:16 | DI.CT.S_ITS ---
PROCEDURE: CT PEL WO CON INDICATIONS: proablbe pelvic fracture TECHNIQUE: Noncontrast 3 mm axial sections acquired through the bony pelvis, with coronal and sagittal reformatting. COMPARISON: [facility], CR, XR HIP W PEL IF DONE RT 2V, 05/29/2022, 10:33. FINDINGS: Image quality: Excellent. Bones: Right pubic rami fractures with mild displacement. No acetabular fracture. No hip fracture. No suspicious lesion. Moderate hip DJD. Soft tissues: Small hematoma adjacent to the right pubic symphysis. Trace presacral edema. Prostatomegaly. Diverticulosis. Calcified atherosclerotic plaque. IMPRESSION: Right pubic rami fractures with mild displacement. Small hematoma adjacent to the right pubic symphysis. Dictated by: Jam Sandoval M.D. on 05/29/2022 at 13:56 Approved by: Jam Sandoval M.D. on 05/29/2022 at 14:02
--- NOTE | 2022-05-29 14:15 | PC.NURSE ---
Patient ambulated 50 ft with walker to the bathroom with no assistance.
[2022-05-29 15:11] VITALS: BP 167/78; PULSE 67; RESP 17; O2SAT 99
== END 2022-05-29 15:13 | disposition home or self-care (01) ==
PROVIDERS: Emergency Provider Emergency Medicine; Family Provider Family Medicine; PCP Family Medicine
DX: S32.511A Fracture of superior rim of right pubis, initial encounter for closed fracture (principal); S32.591A Other specified fracture of right pubis, initial encounter for closed fracture; W18.30XA Fall on same level, unspecified, initial encounter; Y92.830 Public park as the place of occurrence of the external cause; M10.9 Gout, unspecified; I10 Essential (primary) hypertension; Z95.1 Presence of aortocoronary bypass graft
CPT/HCPCS: 36415; 71045; 72192; 73502; 73630; 80053; 84550; 85025; 93005; 93010; 99284

== ENCOUNTER → 2024-06-26 07:05 | Outpatient (CLI) | payer MEDICARE, SELFPAY ==
--- NOTE | 2024-06-26 | DI.MRI.S_ITS ---
PROCEDURE: MR CERVICAL SPINE WO CON INDICATIONS: CHRONIC NECK PAIN, RIGHT SHOULDER PAIN TECHNIQUE: Noncontrast sagittal T1 spin echo and T2 fast spin echo, sagittal STIR, foraminal oblique sagittal T2 fast spin echo, and axial gradient echo or T2 fast spin echo through the cervical spine. COMPARISON: None. FINDINGS: Image quality: Excellent. Alignment and Curvature: There is normal bony alignment. Bone Marrow: Marrow demonstrates normal overall signal. Spinal Cord: Visualized spinal cord has normal size and signal. No cerebellar tonsillar herniation. Paraspinous Soft Tissues: No paravertebral masses. Prevertebral soft tissues are normal in thickness. C2-C3: Mild loss of disc height is seen. Loss of disc signal is seen. A mild degree of generalized disc osteophyte complex is seen. Moderate facet joint hypertrophy is seen. There is at least moderate right-sided and moderate left-sided neural foraminal narrowing. No central canal narrowing is seen. C3-C4: Mild loss of disc height is seen. Loss of disc signal is seen. Moderate disc osteophyte complex is seen, with a central disc osteophyte protrusion. There is at least moderate right-sided and moderate left-sided facet hypertrophy. There is moderate to severe bilateral neural foraminal narrowing seen. Mild central canal narrowing is seen. C4-C5: Mild loss of disc height is seen. Loss of disc signal is seen. Mild disc osteophyte complex is seen, with a central disc osteophyte protrusion. There is at least moderate right-sided and moderate left-sided facet hypertrophy. There is moderate to severe bilateral neural foraminal narrowing seen. Mild central canal narrowing is seen. C5-C6: Mild loss of disc height is seen. Loss of disc signal is seen. Moderate disc osteophyte complex is seen, with a mild central disc osteophyte protrusion. Uncovertebral joint hypertrophy is seen at this level. Moderate facet joint hypertrophy is seen. There is moderate to severe bilateral neural foraminal narrowing, right worse than left. Mild to moderate central canal narrowing is seen. C6-C7: There is severe disc space narrowing seen, with a degree of vertebral body fusion seen at this level anteriorly. Moderate generalized disc osteophyte complex is seen. Mild to moderate facet hypertrophy is seen. Moderate bilateral neural foraminal narrowing is seen. Mild central canal narrowing is seen. C7-T1: The disc height is well-preserved. Loss of disc signal is seen at this level. A mild degree of generalized disc osteophyte complex is seen. Mild facet joint hypertrophy is seen. No significant neural foraminal or central canal narrowing can be seen. IMPRESSION: Multiple levels of cervical spine degenerative change can be seen, which are overall worst at C5-C6 and C6-C7. Dictated by: Antonio Camargo M.D. on 06/26/2024 at 10:53 Approved by: Antonio Camargo M.D. on 06/26/2024 at 10:57
== END ==
PROVIDERS: Family Provider Family Medicine; PCP Family Medicine; Referring Provider Family Medicine; Visit Provider Family Medicine
DX: M47.812 Spondylosis without myelopathy or radiculopathy, cervical region (principal); M54.2 Cervicalgia; M25.511 Pain in right shoulder; G89.29 Other chronic pain
CPT/HCPCS: 72141

== ENCOUNTER 2024-06-26 16:39 | Emergency (ER) | payer MEDICARE, SELFPAY ==
[2024-06-26] VITALS (17 sets, daily range): BP systolic 176–206; BP diastolic 81–95; PULSE 38–67; RESP 14–24; TEMP 36.4–37; O2SAT 96–98; BMI 21.2
--- NOTE | 2024-06-26 16:38 | DI.RAD.S_ITS ---
PROCEDURE: XR CHEST 1V INDICATIONS: Possible stroke TECHNIQUE: One view of the chest was acquired. COMPARISON: [facility], CR, XR CHEST 1V, 05/29/2022, 10:33. FINDINGS: Surgical changes and devices: Post median sternotomy and CABG. Lungs and pleura: Lungs are clear. No pleural effusions or pneumothorax. Mediastinum: Mediastinal contours appear normal. Heart size is normal. Bones and chest wall: No suspicious bony lesions. Overlying soft tissues appear unremarkable. IMPRESSION: No acute cardiopulmonary abnormality is seen. Dictated by: Jam Sandoval M.D. on 06/26/2024 at 17:06 Approved by: Jam Sandoval M.D. on 06/26/2024 at 17:07
--- NOTE | 2024-06-26 16:38 | DI.CT.S_ITS ---
PROCEDURE: CT STROKE INDICATIONS: Positive BE-FAST, Stroke symptoms TECHNIQUE: Noncontrast 4.5 mm thick angled axial sections acquired from the foramen magnum to the vertex, with coronal reformats. For radiation dose reduction, the following was used: automated exposure control, adjustment of mA and/or kV according to patient size. COMPARISON: None. FINDINGS: Image quality: Diagnostic. CSF spaces: Basal cisterns are patent. No extra-axial fluid collections. The ventricles are symmetric in size and shape. Brain: No intracranial bleeds or masses. There is cerebral volume loss for age, with resultant ventricular and sulcal prominence. There are moderate to severe periventricular and deep white matter chronic small vessel ischemic changes. There is intracranial internal carotid artery atherosclerosis. Skull and face: Calvarium and visualized facial bones appear intact, without suspicious lesions. Sinuses: Visualized sinuses and mastoids are clear. IMPRESSION: No acute intracranial pathology. Comment: Findings were discussed with Dr. Tiwari on 06/26/2024 at 1653 hours This study fulfills neurological imaging criteria for inclusion or exclusion of acute stroke therapies based on available published neurological guidelines. Dictated by: Ino Eaton M.D. on 06/26/2024 at 16:51 Approved by: Ino Eaton M.D. on 06/26/2024 at 16:54
--- NOTE | 2024-06-26 16:41 | DI.CT.S_ITS ---
PROCEDURE: CT ANGIO HEAD AND NECK INDICATIONS: facial droop, ? cva vs fall, expressive aphasia TECHNIQUE: After the administration of intravenous contrast, 1 mm thick sections acquired from the aortic arch through the [place] of [place]. 3-dimensional hzvjnji-uibybegvz-eiavsvhwfc (MIP) and/or volume rendering reformats were acquired of the central intracranial vasculature and neck separately. For radiation dose reduction, the following was used: automated exposure control, adjustment of mA and/or kV according to patient size. COMPARISON: [facility], CT, CT STROKE, 06/26/2024, 16:43. FINDINGS: Image quality: Limited by bolus timing, with venous contamination. This examination is limited by involuntary motion artifact. BRAIN: CSF spaces: Ventricles are normal in size and shape. Basal cisterns are patent. No extra-axial fluid collections. Brain: No significant abnormality of the brain can be seen. Skull and face: Calvarium and facial bones appear intact, without suspicious lesions. Orbits appear normal. Sinuses: Moderate mucosal thickening can be seen within the paranasal sinuses. No abnormal fluid is seen within the mastoid air cells. HEAD CT ANGIOGRAPHY: Anterior circulation: Intracranial internal carotid arteries demonstrate generalized calcification, with approximately 50% narrowing on each side. The flow within the paired anterior cerebral arteries is normal and symmetric. The flow within the middle cerebral arteries is normal and symmetric. The anterior communicating artery is seen. No aneurysms are seen. Posterior circulation: Visualized portions of the vertebral arteries demonstrate normal caliber, and join to form a normal appearing basilar artery. Flow within the posterior cerebral arteries is normal and symmetric. No aneurysms are seen. NECK CT ANGIOGRAPHY: Carotid system: The great vessels demonstrate a conventional anatomy as they arise from the aortic arch. The origins of the common carotid arteries appear patent. The common carotid arteries demonstrate normal caliber and courses. The bifurcation regions demonstrate atherosclerotic irregularity and calcification. There is 50-60% narrowing seen on the left and approximately 50% narrowing seen on the right. The more distal internal carotid arteries demonstrate normal course and caliber. Posterior circulation: The origins of the vertebral arteries both appear widely patent. The more superior extracranial portions of both vertebral arteries also demonstrate normal courses and calibers. The right vertebral artery is dominant to the left. Soft tissues: Visualized neck soft tissues demonstrate no suspicious abnormalities. Emphysematous changes can be seen at the lung apices. Bones: No suspicious bony lesions. Visualized cervical spine appears normally aligned. Moderate cervical spine degenerative change can be seen. Sternotomy wires are seen. IMPRESSION: No significant intracranial arterial abnormality is seen. Focal narrowings are seen involving the proximal internal carotid arteries. Additional findings: Paranasal sinus disease Moderate cervical spine degenerative change Sternotomy wires Emphysematous change Any quantitative measurements of stenosis were performed using NASCET criteria. Dictated by: Antonio Camargo M.D. on 06/26/2024 at 16:12 Approved by: Antonio Camargo M.D. on 06/26/2024 at 16:15
[2024-06-26 16:53] LABS: Hematocrit 33.9 % (41-53); Hemoglobin 11.4 g/dL (13.5-17.5); Mean Corpuscular HGB Conc 33.5 % (30-36); Mean Corpuscular Hemoglobin 30.6 PG (26-34); Mean Corpuscular Volume 91.3 fL (80-100); Neutrophils Percent Auto 63.1 % (50-75); Platelet Count 414 X10^3/uL (150-400); Red Blood Cell Count 3.71 X10^6/uL (4.5-5.9); Red Cell Distribution Width 14.5 % (11.6-14.8); White Blood Cell Count 9.8 X10^3/uL (4.5-11.0)
--- NOTE | 2024-06-26 16:53 | EKG_ITS ---
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
[2024-06-26 16:54] LABS: Add Manual Diff / Slide Review NO; Basophils Absolute Auto 100 /uL (0-100); Basophils Percent Auto 0.8 % (0-2); Eosinophils Absolute Auto 400 /uL (0-450); Eosinophils Percent Auto 4.1 % (2-4); Lymphocytes Absolute Auto 2100 /uL (1100-4500); Lymphocytes Percent Auto 21.1 % (25-40); Monocytes Absolute Auto 1100 /uL (0-900); Monocytes Percent Auto 10.9 % (3-14); Neutrophils Absolute Auto 6200 /uL (1500-7000)
--- NOTE | 2024-06-26 16:54 | ED.NEUROSD ---
HPI - Neuro Symptoms/Deficit General Chief Complaint: Neuro Symptoms/Deficit Stated Complaint: Code Stroke Time Seen by Provider: 06/26/24 16:41 Source: patient, EMS, RN notes reviewed and old records reviewed Mode of arrival: EMS Limitations: altered mental status History of Present Illness HPI Narrative: 83-year-old male history of three-vessel CABG, diabetes, hypertension on aspirin daily who presents with complaint of potential stroke-like symptoms. Patient was with his was his normal self today ambulating conversant went to take a shower at 3:45 p.m. which is his normal time heard a thump about 10 minutes into this and went to find him he was not really been in conversant he was got facial droop. He has been alert does have some difficulty following commands. Patient has not had any recent trauma or injuries no fevers was acting normally with no other complaints prior to this. Did have his normal aspirin this morning 325 mg. states he takes medication for diabetes, hypertension and aspirin 325 mg daily. He has had prior three-vessel CABG 30 years ago and had a pelvic fracture about 2 years ago that did not require any surgery. He does chew tobacco, has not alcoholic drink daily no other recreational drugs. No known drug allergies. Dr. Jeffries is his primary care physician. arrived shortly after EMS. Patient had glucose proximally 116 in the field Related Data Home Medications Medication Instructions Recorded Confirmed amlodipine 2.5 mg tablet 2.5 mg PO DAILY 04/29/19 05/29/22 glipizide 10 mg tablet 5 mg PO DAILY 08/03/20 05/29/22 hydrochlorothiazide 25 mg tablet 25 mg PO DAILY 08/03/20 05/29/22 omega-3 fatty acids 1,000 mg 1,000 mg PO DAILY 08/03/20 08/03/20 capsule (Fish Oil Concentrate) aspirin 81 mg capsule 81 mg PO DAILY 05/29/22 05/29/22 lisinopril 10 mg tablet 10 mg PO DAILY 05/29/22 05/29/22 Previous Rx's Medication Instructions Recorded allopurinol 200 mg tablet 200 mg PO BID #14 tabs 05/29/22 cephalexin 500 mg capsule 500 mg PO BID #14 caps 05/29/22 hydrocodone 5 mg-acetaminophen 325 1 tab PO Q6H PRN pain #10 tabs 05/29/22 mg tablet Allergies Allergy/AdvReac Type Severity Reaction Status Date / Time No Known Drug Allergies Allergy Verified 05/29/22 10:33 Review of Systems Review of Systems ROS Unobtainable: Unobtainable due to mental status/LOC Patient History Medical History Diabetes Dyslipidemia Hypertension Shoulder impingement syndrome DJD of shoulder Surgical History Hx of CABG Family History Grandfather Diabetes mellitus Social History marital status: household members: spouse occupational status: employed Smoking Status: Never smoker alcohol intake: current substance use type: does not use Smoking Status: Never smoker alcohol intake frequency: 0-2 drinks per day Alcohol type: hard liquor Exam Narrative Exam Narrative: GEN: well nourished, male, alert, patient appears to be in moderate distress. HEENT: Atraumatic, pupils are equal round reactive to light, patient appears to have little bit of deviation to the right although difficult as patient does not follow commands for extraocular movements, nares are clear, there is no conjunctival pallor. Throat is clear without any exudates, erythema, tonsillar enlargement or uvular deviation, right-sided facial droop. HEART: Regular rate and rhythm without murmur, clicks, rubs. Pulses are equal in upper and lower extremities LUNGS:Lungs clear to auscultation, no wheezes, rales, crackles, chest moves symmetrically ABD:bowel sounds normal, soft, non-tender, no guarding, rebound, rigidity, no masses noted, no hepatosplenomegaly :No CVA tenderness MSCL: Non-tender, no muscle atrophy, muscles strength 5/5 upper and lower extremities, full range of motion, no drift bilateral upper or lower extremities. NEURO:CN 2-12 intact, sensation normal Patient is not able to follow commands for eivwwg-vnxy-gwsuvt, he can get his heel to his ho but is unable to follow commands for heel-ho either. Does appear to have sensation all 4 extremities. Initial Vital Signs Initial Vital Signs: Vital Signs Temperature 98.6 F 06/26/24 16:45 Pulse Rate 45 L 06/26/24 16:45 Respiratory Rate 14 06/26/24 16:45 Pulse Oximetry 98 06/26/24 16:45 Oxygen Delivery Method Room Air 06/26/24 16:45 Scores NIH Stroke Scale Level of Conciousness: Alert, keenly responsive Ask month/age: Answers neither question correctly, aphasic, stuporous, coma Open/close eyes, close hand: Performs both tasks correctly Best gaze horizontal: Partial gaze palsy, can be overcome by finger tracking, head turning Visual sharp: No visual loss Facial palsy: Partial paralysis, total or near total paralysis of lower face Left arm drift: No drift for full 10 sec Right arm drift: No drift for full 10 sec Left leg drift: No drift for full 5 sec Right leg drift: No drift for full 5 sec Limb ataxia: Absent (unable to assess secondary to inability to follow commands.) Sensory on face/arms/legs: Normal, no sensory loss Best language: Severe aphasia, not much is understood, fragmented Dysarthria: Severe, unintelligible Extinction or inattention: No abnormality Total NIH Stroke scale score: 9 Course Orders Ordered: ED Orders 06/26/24 16:20 Complete Blood Count AUTO DIFF Stat Comprehensive Metabolic Panel Stat Magnesium Stat PTT Partial Thromboplastin Kiran Stat Prothrombin Time INR Stat Troponin & CK Cardiac Panel Stat 06/26/24 16:38 CT Stroke Stat XR chest 1V Stat Urine Drug Screen, Rapid Stat EKG-12 Lead Stat 06/26/24 16:41 CT angio head and neck Stat Nicardipine HCl 25 mg/ Sodium (Chloride) 250 mls @ 50 mls/hr IV TITRATE SONIA; Protocol Last Admin: 06/26/24 18:41 Dose: 5 mg/hr, 50 mls/hr Documented By: BRITTNY Ondansetron HCl (Ondansetron 4 Mg/2 Ml Inj) 4 mg IV NOW PRN PRN Reason: Nausea And Vomiting Last Admin: 06/26/24 17:53 Dose: 4 mg Documented By: BRITTNY Discontinued Medications Labetalol HCl (Labetalol 20 Mg/4 Ml Syringe) 5 mg IV NOW ONE Stop: 06/26/24 17:48 Last Admin: 06/26/24 17:53 Dose: 5 mg Documented By: BRITTNY Ondansetron HCl (Ondansetron 4 Mg Odt) 4 mg SL NOW PRN PRN Reason: Nausea And Vomiting Tenecteplase (Tenecteplase 50 Mg Vial) 25 mg IV NOW ONE Stop: 06/26/24 17:48 Last Admin: 06/26/24 18:06 Dose: 25 mg Documented By: Sushila Co-signed By: LES Vital Signs Vital signs: Vital Signs - 8 hr 06/26/24 16:45 06/26/24 16:53 06/26/24 16:58 Temperature 98.6 F Pulse Rate 45 L 54 L 56 L Respiratory Rate 14 22 Blood Pressure Pulse Oximetry 98 98 98 Oxygen Delivery Method Room Air 06/26/24 16:58 06/26/24 17:00 06/26/24 17:00 Temperature Pulse Rate 48 L Respiratory Rate 19 Blood Pressure 206/95 H 194/88 H Pulse Oximetry 98 Oxygen Delivery Method 06/26/24 17:14 06/26/24 17:14 06/26/24 17:16 Temperature Pulse Rate 46 L Respiratory Rate 21 Blood Pressure 201/83 H 184/86 H Pulse Oximetry 98 Oxygen Delivery Method 06/26/24 17:16 06/26/24 17:30 06/26/24 17:53 Temperature Pulse Rate 45 L 52 L 67 Respiratory Rate 19 18 Blood Pressure 184/86 H Pulse Oximetry 97 Oxygen Delivery Method 06/26/24 18:00 06/26/24 18:02 06/26/24 18:02 Temperature Pulse Rate 45 L 40 L Respiratory Rate 18 17 Blood Pressure 193/90 H Pulse Oximetry 97 97 Oxygen Delivery Method 06/26/24 18:03 06/26/24 18:03 06/26/24 18:08 Temperature Pulse Rate 38 L 38 L Respiratory Rate 20 19 Blood Pressure 192/84 H Pulse Oximetry 97 96 Oxygen Delivery Method Room Air 06/26/24 18:08 06/26/24 18:21 Temperature Pulse Rate 40 L Respiratory Rate Blood Pressure 176/81 H 188/83 H Pulse Oximetry Oxygen Delivery Method MDM - Neuro Symptoms/Deficit Lab Data 06/26/24 16:20 06/26/24 16:20 Labs: Lab Results 06/26/24 Range/Units 16:20 WBC 9.8 (4.5-11.0) X10^3/uL RBC 3.71 L (4.5-5.9) X10^6/uL Hgb 11.4 L (13.5-17.5) g/dL Hct 33.9 L (41-53) % MCV 91.3 (80-100) fL MCH 30.6 (26-34) PG MCHC 33.5 (30-36) % RDW 14.5 (11.6-14.8) % Plt Count 414 H (150-400) X10^3/uL Neut % (Auto) 63.1 (50-75) % Lymph % (Auto) 21.1 L (25-40) % [place] % (Auto) 10.9 (3-14) % Eos % (Auto) 4.1 H (2-4) % Baso % (Auto) 0.8 (0-2) % Neut # (Auto) 6200 (5811-8121) /uL Lymph # (Auto) 2100 (9019-2881) /uL [place] # (Auto) 1100 H (0-900) /uL Eos # (Auto) 400 (0-450) /uL Baso # (Auto) 100 (0-100) /uL PT 10.9 (9.4-12.5) SECONDS INR 1.0 (0.9-1.3) APTT 37 H (25.1-36.5) SECONDS Sodium 138 (137-145) mmol/L Potassium 5.4 H (3.4-5.1) mmol/L Chloride 113 H (98-107) mmol/L Carbon Dioxide 16 L (22-32) mmol/L BUN 57 H (9-20) mg/dL Creatinine 2.59 H (0.66-1.25) mg/dL Estimated GFR 24 L (>60) mL/min BUN/Creatinine Ratio 22.0 (6-22) Glucose 130 H (80-110) mg/dL Calcium 8.9 (8.4-10.2) mg/dL Magnesium 2.0 (1.6-2.3) mg/dL Total Bilirubin 0.5 (0.2-1.3) mg/dL AST 26 (17-59) IU/L ALT 21 (<50) IU/L Alkaline Phosphatase 117 (38-126) U/L Total Creatine Kinase 51 L (55-170) U/L Troponin I 0.031 (0.01-0.034) ng/mL Total Protein 7.6 (6.3-8.2) g/dL Albumin 4.1 (3.5-5.0) g/dL Globulin 3.5 (1.7-4.1) g/dL Albumin/Globulin Ratio 1.2 (1.0-2.8) Point of Care Testing Glucose POC [address] scan - head: Radiologist's Impression: [address] [address] [address] Scan Report Signed Patient: Basil Goel MR#: [id number] : 1940 Acct:[id number] Age/Sex: 83 / M Date of Service: 06/26/24 Loc: ED Accession Number: [id number] Procedure: CT Stroke Ordering Provider: Tenisha Tiwari D.O. PROCEDURE: CT STROKE INDICATIONS: Positive BE-FAST, Stroke symptoms TECHNIQUE: Noncontrast 4.5 mm thick angled axial sections acquired from the foramen magnum to the vertex, with coronal reformats. For radiation dose reduction, the following was used: automated exposure control, adjustment of mA and/or kV according to patient size. COMPARISON: None. FINDINGS: Image quality: Diagnostic. CSF spaces: Basal cisterns are patent. No extra-axial fluid collections. The ventricles are symmetric in size and shape. Brain: No intracranial bleeds or masses. There is cerebral volume loss for age, with resultant ventricular and sulcal prominence. There are moderate to severe periventricular and deep white matter chronic small vessel ischemic changes. There is intracranial internal carotid artery atherosclerosis. Skull and face: Calvarium and visualized facial bones appear intact, without suspicious lesions. Sinuses: Visualized sinuses and mastoids are clear. IMPRESSION: No acute intracranial pathology. Comment: Findings were discussed with Dr. Tiwari on 06/26/2024 at 1653 hours This study fulfills neurological imaging criteria for inclusion or exclusion of acute stroke therapies based on available published neurological guidelines. Dictated by: Ino Eaton M.D. on 06/26/2024 at 16:51 Approved by: Ino Eaton M.D. on 06/26/2024 at 16:54 CTA - brain/neck: Radiologist's Impression: Close Head/Neck CTA (Signed) Antonio Camargo - 06/26/24 Chest X-Ray (Signed) Jam Sandoval - 06/26/[address] (Signed) Ino Eaton - 06/26/24 Cervical Spine MRI (Signed) Antonio Camargo - 06/26/[address] (Signed) Call,Jam - 05/29/22 Foot X-Ray (Signed) Taiwo Quirozistin - 05/29/22 Chest X-Ray (Signed) Call,Jam - 05/29/22 Hip X-Ray (Signed) Taiwo Quirozistin - 05/29/22 Radiology Report (Cancelled) Rush Galaviz - 08/17/20 Myocardial Perfusion Scan Nuc Med (Signed) Rush Galaviz - 08/17/20 Abdomen X-Ray (Signed) Mason Perez - 07/28/20 Launch?Image [address] [address] [address] Scan Report Signed Patient: Basil Goel MR#: [id number] : 1940 Acct:[id number] Age/Sex: 83 / M Date of Service: 06/26/24 Loc: ED Accession Number: [id number] Procedure: CT angio head and neck Ordering Provider: Tenisha Tiwari D.O. PROCEDURE: CT ANGIO HEAD AND NECK INDICATIONS: facial droop, ? cva vs fall, expressive aphasia TECHNIQUE: After the administration of intravenous contrast, 1 mm thick sections acquired from the aortic arch through the [place] of [place]. 3-dimensional zbhhgct-dqbxsxwkq-scbvlmpmin (MIP) and/or volume rendering reformats were acquired of the central intracranial vasculature and neck separately. For radiation dose reduction, the following was used: automated exposure control, adjustment of mA and/or kV according to patient size. COMPARISON: [facility], CT, CT STROKE, 06/26/2024, 16:43. FINDINGS: Image quality: Limited by bolus timing, with venous contamination. This examination is limited by involuntary motion artifact. BRAIN: CSF spaces: Ventricles are normal in size and shape. Basal cisterns are patent. No extra-axial fluid collections. Brain: No significant abnormality of the brain can be seen. Skull and face: Calvarium and facial bones appear intact, without suspicious lesions. Orbits appear normal. Sinuses: Moderate mucosal thickening can be seen within the paranasal sinuses. No abnormal fluid is seen within the mastoid air cells. HEAD CT ANGIOGRAPHY: Anterior circulation: Intracranial internal carotid arteries demonstrate generalized calcification, with approximately 50% narrowing on each side. The flow within the paired anterior cerebral arteries is normal and symmetric. The flow within the middle cerebral arteries is normal and symmetric. The anterior communicating artery is seen. No aneurysms are seen. Posterior circulation: Visualized portions of the vertebral arteries demonstrate normal caliber, and join to form a normal appearing basilar artery. Flow within the posterior cerebral arteries is normal and symmetric. No aneurysms are seen. NECK CT ANGIOGRAPHY: Carotid system: The great vessels demonstrate a conventional anatomy as they arise from the aortic arch. The origins of the common carotid arteries appear patent. The common carotid arteries demonstrate normal caliber and courses. The bifurcation regions demonstrate atherosclerotic irregularity and calcification. There is 50-60% narrowing seen on the left and approximately 50% narrowing seen on the right. The more distal internal carotid arteries demonstrate normal course and caliber. Posterior circulation: The origins of the vertebral arteries both appear widely patent. The more superior extracranial portions of both vertebral arteries also demonstrate normal courses and calibers. The right vertebral artery is dominant to the left. Soft tissues: Visualized neck soft tissues demonstrate no suspicious abnormalities. Emphysematous changes can be seen at the lung apices. Bones: No suspicious bony lesions. Visualized cervical spine appears normally aligned. Moderate cervical spine degenerative change can be seen. Sternotomy wires are seen. IMPRESSION: No significant intracranial arterial abnormality is seen. Focal narrowings are seen involving the proximal internal carotid arteries. Additional findings: Paranasal sinus disease Moderate cervical spine degenerative change Sternotomy wires Emphysematous change Any quantitative measurements of stenosis were performed using NASCET criteria. Dictated by: Antonio Camargo M.D. on 06/26/2024 at 16:12 Approved by: Antonio Camargo M.D. on 06/26/2024 at 16:15 Chest x-ray: Radiologist's Impression: [address] [address] XRay Report Signed Patient: Basil Goel MR#: [id number] : 1940 Acct:[id number] Age/Sex: 83 / M Date of Service: 06/26/24 Loc: ED Accession Number: [id number] Procedure: XR chest 1V Ordering Provider: Tenisha Tiwari D.O. PROCEDURE: XR CHEST 1V INDICATIONS: Possible stroke TECHNIQUE: One view of the chest was acquired. COMPARISON: [facility], XR CHEST 1V, 05/29/2022, 10:33. FINDINGS: Surgical changes and devices: Post median sternotomy and CABG. Lungs and pleura: Lungs are clear. No pleural effusions or pneumothorax. Mediastinum: Mediastinal contours appear normal. Heart size is normal. Bones and chest wall: No suspicious bony lesions. Overlying soft tissues appear unremarkable. IMPRESSION: No acute cardiopulmonary abnormality is seen. Dictated by: Jam Sandoval M.D. on 06/26/2024 at 17:06 Approved by: Jam Sandoval M.D. on 06/26/2024 at 17:07 ECG Data Attestation: I personally reviewed and interpreted this ECG as follows: Prior ECG tracings: available for review Interpretation: Sinus bradycardia rate of 50 SD 124 QRS of 106 QTC of 408 patient has inverted T-waves in V4 5 and 6 no elevation. Patient has prior from 05/29/2022 which does appear not inverted. [facility] Narrative Medical decision making narrative: 83-year-old male presents with complaint of altered mental status appears to have facial droop does not have any drift but does not appear to have some expressive aphasia he was bradycardic, hypertensive non-con head CT is negative for acute change code stroke was initiated with EMS call. Last known normal was 1545 according to patient's who states he was in the house in his normal baseline at that time. Blood sugar with EMS was appropriate. Repeat here was also appropriate. Patient was potential TNK candidate. Patient is hypertensive 194/88 has had prior visits where his pressures are in the 200s in 2020. Labs show white count of 9.8 hemoglobin of 11 platelets of 414. Coags is 1 CMP labs show potassium 5 point chloride of 113 CO2 of 16 BUN 57 creatinine 2.59 was 1.59 in May 2022. No reported issues with the kidneys for family, no priors available in the interim. Glucose is 130. LFTs are negative total CK is 51 troponin is 0.031 Non-con head CT negative results called to myself by Radiology Head and neck CT angio significant intracranial abnormality focal narrowing seen involving proximal ICAs paraspinal sinus disease moderate cervical spinal degenerative change sternotomy wires emphysematous change. CXR is negative. EKG shows sinus bradycardia premature atrial complexes does have inverted T-waves in lateral leads which appear new from 2021. 1711 consult with telestroke [facility], spoke with Dr. Black, reviewed findings with the patient she was going to finish reviewing patient's CT angio and we will do video evaluation of the patient. 1746 Dr. Black recommends tnk, discussed risks versus benefits. Agrees there is likely a focal defect. Would recommend a little bit of labetalol most recent pressure has been 184/86 she would like to give it a little bit additional. Accepts for transfer to [facility] asked that we talked with the coordinator. Discussed with patient and family they are agreeable. Discussed risks versus benefits including intracranial bleed, no improvement of symptoms. They are aware patient would require transfer if given. notes his blood pressure is often quite elevated was given a dose of labetalol had improvement to 176 systolic and tnk given. 1830 Recontacted [facility], patient's blood pressure still running about 188 patient is quite bradycardic even before labetalol we will start nicardipine drip for BP control. Critical Care Time Critical Care Time Critical Care Time: Yes Total Critical Care Time: 40 Attestation: The high probability of a clinically significant, sudden or life threatening deterioration of the neurologic system(s) required my full and direct attention, intervention and personal management. The aggregate critical care time was [--] minutes. This time is in addition to time spent performing reported procedures but includes the following: [x] Data Review and interpretation [x] Patient assessment and monitoring of vital signs [x] Documentation [x] Medication orders and management Discharge Plan Departure Patient Disposition: [facility] Clinical Impression: Acute CVA (cerebrovascular accident) Prescriptions: No Action hydrochlorothiazide 25 mg tablet 25 mg PO DAILY omega-3 fatty acids [Fish Oil Concentrate] 1,000 mg capsule 1,000 mg PO DAILY lisinopril 10 mg tablet 10 mg PO DAILY aspirin 81 mg Capsule 81 mg PO DAILY allopurinol 200 mg tablet 200 mg PO BID Qty: 14 0RF cephalexin 500 mg capsule 500 mg PO BID Qty: 14 0RF hydrocodone-acetaminophen 5-325 mg tablet 1 tab PO Q6H PRN (Reason: pain) Qty: 10 0RF amlodipine 2.5 mg tablet 2.5 mg PO DAILY glipizide 10 mg tablet 5 mg PO DAILY Referrals: Rush Jeffries MD [Primary Care Provider] -
[2024-06-26 17:06] LABS: Prothrombin Time 10.9 SECONDS (9.4-12.5)
[2024-06-26 17:09] LABS: PTT Partial Thromboplastin Tim 37 SECONDS (25.1-36.5)
[2024-06-26 17:13] LABS: HEMOLYSIS < 15 (0-50)
[2024-06-26 17:14] LABS: Alanine Aminotransferase 21 IU/L (<50); Albumin 4.1 g/dL (3.5-5.0); Albumin Globulin Ratio 1.2 (1.0-2.8); Alkaline Phosphatase 117 U/L (38-126); Aspartate Aminotransferase 26 IU/L (17-59); Bilirubin Total 0.5 mg/dL (0.2-1.3); Blood Urea Nitrogen 57 mg/dL (9-20); Calcium 8.9 mg/dL (8.4-10.2); Carbon Dioxide 16 mmol/L (22-32); Chloride 113 mmol/L (98-107); Creatine Kinase 51 U/L (55-170); Estimated Glomerular Filt Rate 24 mL/min (>60); Globulin 3.5 g/dL (1.7-4.1); Glucose 130 mg/dL (80-110); Potassium 5.4 mmol/L (3.4-5.1); Sodium 138 mmol/L (137-145); Total Protein 7.6 g/dL (6.3-8.2)
--- NOTE | 2024-06-26 17:17 | PC.NURSE ---
and son at bedside. updated of current assessment/work up plan. Pt follows some commands such as lifting arms and legs but states i dont know to questions and is not able to open and close fists. intermittent coughing on saliva. head of bed elevated and improvement noted.
[2024-06-26 17:26] LABS: Troponin I 0.031 ng/mL (0.01-0.034)
[2024-06-26] MEDS: ONDANSETRON 4 MG/2 ML INJ IV (17:53)
[2024-06-26] MEDS: LABETALOL 20 MG/4 ML SYRINGE 5 MG IV (17:53)
[2024-06-26] MEDS: TENECTEPLASE 50 MG VIAL 25 MG IV (18:06)
--- NOTE | 2024-06-26 18:16 | PC.NURSE ---
Dr. Tiwari notified of bradycardia prior to metoprolol administration. HR 44-60 with intermittent couplets. Post metoprolol, pt hr 34-40. pt apprears to be asymptomatic. Alert in bed. skin pink and dry.
[2024-06-26] MEDS: NICARDIPINE 25 MG in SODIUM CHLORIDE 0.9% 240 ML 50 MG IV (18:41)
== END 2024-06-26 19:00 | disposition short-term general hospital (02) ==
PROVIDERS: Emergency Provider Emergency Medicine; Family Provider Family Medicine; PCP Family Medicine
DX: I63.9 Cerebral infarction, unspecified (principal); R47.01 Aphasia; R29.810 Facial weakness; I10 Essential (primary) hypertension; R29.709 NIHSS score 9; R00.1 Bradycardia, unspecified; M47.812 Spondylosis without myelopathy or radiculopathy, cervical region; M54.2 Cervicalgia; M25.511 Pain in right shoulder; G89.29 Other chronic pain
CPT/HCPCS: 70450; 70496; 70498; 71045; 72141; 80053; 82550; 82962; 83735; 84484; 85025; 85610; 85730; 93005; 93010; 96365; 96375; 99285; 99291; 99292; J3101; J2405; Q9967

== ENCOUNTER 2024-07-09 12:32 | Emergency (ER) | payer MEDICARE, SELFPAY ==
[2024-07-09 13:55] VITALS: BP 148/97; PULSE 70; RESP 14; TEMP 36.6; O2SAT 98; BMI 22.1
--- NOTE | 2024-07-09 14:46 | ED_ITS ---
<Statement entered by Thom Lea DO - 07/17/24 06:59> Dr. Lea: I was immediately available in the department for consultation. I did not actually see the patient. HPI - Male Genitourinary General Chief complaint: Urogenital-Male Stated complaint: Here to take catheter out Time Seen by Provider: 07/09/24 14:46 Source: patient Mode of arrival: Ambulatory History of Present Illness HPI Narrative: Mr. Goel is a pleasant 83-year-old male with a past medical history of recent stroke on 07/02/2024, dyslipidemia, hypertension, CABG who presents to the emergency department to have his urinary catheter removed. Patient states he had Fenton catheter during his hospitalization in [place] due to his stroke and he was told to have it removed today however his PCP Dr. Calvo was not available so he was directed to [facility] office however they had no one available to remove catheter therefore patient came to the ED. Patient wants catheter removed. States he is not having any blood in the catheter, no burning pain, no abdominal pain. He is still passing gas, slightly constipated. No fevers. Related Data Home Medications Medication Instructions Recorded Confirmed amlodipine 2.5 mg tablet 2.5 mg PO DAILY 04/29/19 05/29/22 glipizide 10 mg tablet 5 mg PO DAILY 08/03/20 05/29/22 hydrochlorothiazide 25 mg tablet 25 mg PO DAILY 08/03/20 05/29/22 omega-3 fatty acids 1,000 mg 1,000 mg PO DAILY 08/03/20 08/03/20 capsule (Fish Oil Concentrate) aspirin 81 mg capsule 81 mg PO DAILY 05/29/22 05/29/22 lisinopril 10 mg tablet 10 mg PO DAILY 05/29/22 05/29/22 Previous Rx's Medication Instructions Recorded allopurinol 200 mg tablet 200 mg PO BID #14 tabs 05/29/22 cephalexin 500 mg capsule 500 mg PO BID #14 caps 05/29/22 hydrocodone 5 mg-acetaminophen 325 1 tab PO Q6H PRN pain #10 tabs 05/29/22 mg tablet Allergies Allergy/AdvReac Type Severity Reaction Status Date / Time No Known Drug Allergies Allergy Verified 05/29/22 10:33 Review of Systems Review of Systems ROS Unobtainable: All systems reviewed & are unremarkable except as noted in HPI and below Patient History Medical History Diabetes Dyslipidemia Hypertension Shoulder impingement syndrome DJD of shoulder Surgical History Hx of CABG Family History Grandfather Diabetes mellitus Social History marital status: household members: spouse occupational status: employed Smoking Status: Never smoker alcohol intake: current substance use type: does not use Smoking Status: Never smoker alcohol intake frequency: 0-2 drinks per day Alcohol type: hard liquor Exam Narrative Exam Narrative: GENERAL: 83 year old patient appears stated age. Well-developed patient, in no acute distress. HEAD: Atraumatic. Normocephalic. CARDIOVASCULAR: Regular rate RESPIRATORY: ?Nonlabored respirations. ?Speaking in clear, full sentences. GASTROINTESTINAL: Abdomen soft, non-tender, protuberant. Normal bowel sounds. Fenton catheter in place with yellow/clear urine in bag. BACK: Nontender without deformity or crepitance. No flank tenderness. NEURO: AOx3. ?Clear speech. ?Moves all 4 extremities appropriately. SKIN: No rash or erythema of visible areas Initial Vital Signs Initial Vital Signs: Vital Signs Temperature 97.9 F 07/09/24 13:55 Pulse Rate 70 07/09/24 13:55 Respiratory Rate 14 07/09/24 13:55 Blood Pressure 148/97 H 07/09/24 13:55 Pulse Oximetry 98 07/09/24 13:55 Oxygen Delivery Method Room Air 07/09/24 13:55 Course Vital Signs Vital signs: Vital Signs - 8 hr 07/09/24 13:55 Temperature 97.9 F Pulse Rate 70 Respiratory Rate 14 Blood Pressure 148/97 H Pulse Oximetry 98 Oxygen Delivery Method Room Air MDM - Male Genitourinary Medical Records Attestation: I reviewed the patient's medical records. MDM Narrative Medical decision making narrative: 83-year-old male with a past medical history of recent stroke on 07/02/2024, dyslipidemia, hypertension, CABG who presents to the emergency department to have his urinary catheter removed. His contributes to the history. Differential diagnosis includes but is not limited to Fenton catheter removal, urinary retention, UTI, etc. On exam patient is in no acute distress, nontoxic appearing, clear/yellow urine in Fenton bag, abdomen nontender. He was supposed to have his catheter removed today at his PCP however they do not have someone available to do that so he was sent to the ED. Patient states he was having no urinary problems but had the catheter placed because of his stroke, he is frustrated PCP could not remove as scheduled. We will proceed with catheter removal in the ED, informed patient that he may stay in the ED for monitoring to assure no urinary retention however he would prefer to go home, drink water, return to the ED if he is unable to urinate. Discussed risks of urinary retention. Discussed signs and symptoms of infection. Both patient and his verbalized understanding of all information or agreeable to plan. Catheter removed by nursing staff without complication. He is stable for discharge home ED return precautions discussed, recommended follow up with PCP. Discharge Plan Departure Patient Disposition: Home Clinical Impression: Encounter for Fenton catheter removal Activity Restrictions/Additional Instructions: Today you had your Fenton catheter removed. We apologize that this could not be done in your primary care doctor's office. After having a catheter removed, it is very important that you can urinate on your own. Please drink water. If you are unable to urinate on your own by this evening you need to return to the emergency department as this could mean you are having urinary retention and would need to have a catheter placed again. If you urinate normally, you may follow up with your primary care doctor. If you develop burning with urination, fevers, chills, any other concerns for infection please return to the ED. Please follow up with your primary care doctor within the next 2-3 days for ER follow-up. (If you do not have a PCP you can call [phone]. ?to schedule an appointment with an [facility] Primary Care Provider) IF YOU DEVELOP ANY NEW OR WORSENING SYMPTOMS, RETURN TO THE ER! Please read the attached instructions, they highlight more specific treatments and interventions for you at home. Thank you for letting me participate in your care, Bela Echevarria PA-C Prescriptions: No Action hydrochlorothiazide 25 mg tablet 25 mg PO DAILY omega-3 fatty acids [Fish Oil Concentrate] 1,000 mg capsule 1,000 mg PO DAILY lisinopril 10 mg tablet 10 mg PO DAILY aspirin 81 mg Capsule 81 mg PO DAILY allopurinol 200 mg tablet 200 mg PO BID Qty: 14 0RF cephalexin 500 mg capsule 500 mg PO BID Qty: 14 0RF hydrocodone-acetaminophen 5-325 mg tablet 1 tab PO Q6H PRN (Reason: pain) Qty: 10 0RF amlodipine 2.5 mg tablet 2.5 mg PO DAILY glipizide 10 mg tablet 5 mg PO DAILY Referrals: Rush Jeffries MD [Primary Care Provider] - Stand Alone Forms: Patient Portal/API/Survey
--- NOTE | 2024-07-09 15:34 | PC.NURSE ---
Arrived to ED for cath removal. Cath removed. Pt tolerated well. Pt undertands that he is to come back to ED if he does not urinate within 5 hours.
== END 2024-07-09 15:43 | disposition home or self-care (01) ==
PROVIDERS: Emergency Provider Physician Assistant; Family Provider Family Medicine; PCP Family Medicine
DX: T83.021A Displacement of indwelling urethral catheter, initial encounter (principal)

== ENCOUNTER 2024-07-09 20:24 | Emergency (ER) | payer MEDICARE, SELFPAY ==
[2024-07-09] VITALS (8 sets, daily range): BP systolic 137–178; BP diastolic 64–84; PULSE 91–98; RESP 19–22; TEMP 36.9; O2SAT 93–98
--- NOTE | 2024-07-09 20:33 | EKG_ITS ---
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
--- NOTE | 2024-07-09 20:38 | DI.RAD.S_ITS ---
PROCEDURE: XR CHEST 1V INDICATIONS: STEMI TECHNIQUE: One view of the chest was acquired. COMPARISON: [facility], CR, XR CHEST 1V, 06/26/2024, 16:37. FINDINGS: Surgical changes and devices: Sternal wires. Lungs and pleura: Lungs are clear. No pleural effusions or pneumothorax. Mediastinum: Mediastinal contours appear normal. Heart size is enlarged. Bones and chest wall: No suspicious bony lesions. Overlying soft tissues appear unremarkable. IMPRESSION: No acute pulmonary process. Dictated by: Renee Krause M.D. on 07/09/2024 at 21:21 Approved by: Renee Krause M.D. on 07/09/2024 at 21:22
--- NOTE | 2024-07-09 20:38 | ED.GENADULT ---
HPI - General Adult General Chief complaint: Chest Pain Stated complaint: Insert Catheter Time Seen by Provider: 07/09/24 20:32 Source: patient and family Mode of arrival: Ambulatory Limitations: no limitations History of Present Illness HPI narrative: Patient was an 83-year-old male. History of coronary artery disease. On 06/26/2024 patient was seen here in this emergency department in 10 diagnosed with an acute CVA. Was administered TNK and subsequently transferred to [facility]. Patient did have a Fenton catheter in place. He was not currently on anticoagulation. He was seen here in this emergency department earlier today to have his Fenton catheter removed. It was removed and he was told that if he did not urinate in the next 3 hours that he needed to come back to the emergency department. He has not urinated since that time and so they were coming back to the emergency department in order to have the Fenton catheter placed when he started to have chest discomfort that radiated to his neck. No shortness of breath. He initially checked in with a chief complaint of having a Fenton catheter placed but upon triage was describing chest discomfort. EKG was ordered prior to my evaluation and I was informed upon the results of a potential ST elevation CO. Related Data Home Medications Medication Instructions Recorded Confirmed amlodipine 2.5 mg tablet 2.5 mg PO DAILY 04/29/19 05/29/22 glipizide 10 mg tablet 5 mg PO DAILY 08/03/20 05/29/22 hydrochlorothiazide 25 mg tablet 25 mg PO DAILY 08/03/20 05/29/22 omega-3 fatty acids 1,000 mg 1,000 mg PO DAILY 08/03/20 08/03/20 capsule (Fish Oil Concentrate) aspirin 81 mg capsule 81 mg PO DAILY 05/29/22 05/29/22 lisinopril 10 mg tablet 10 mg PO DAILY 05/29/22 05/29/22 Previous Rx's Medication Instructions Recorded allopurinol 200 mg tablet 200 mg PO BID #14 tabs 05/29/22 cephalexin 500 mg capsule 500 mg PO BID #14 caps 05/29/22 hydrocodone 5 mg-acetaminophen 325 1 tab PO Q6H PRN pain #10 tabs 05/29/22 mg tablet Allergies Allergy/AdvReac Type Severity Reaction Status Date / Time No Known Drug Allergies Allergy Verified 05/29/22 10:33 Review of Systems Review of Systems ROS Unobtainable: All systems reviewed & are unremarkable except as noted in HPI and below Patient History Medical History Diabetes Dyslipidemia Hypertension Shoulder impingement syndrome DJD of shoulder Surgical History Hx of CABG Family History Grandfather Diabetes mellitus Social History marital status: household members: spouse occupational status: employed Smoking Status: Never smoker alcohol intake: current substance use type: does not use Smoking Status: Never smoker alcohol intake frequency: 0-2 drinks per day Alcohol type: hard liquor Exam Initial Vital Signs Initial Vital Signs: Vital Signs Temperature 98.4 F 07/09/24 20:30 Pulse Rate 91 H 07/09/24 20:30 Respiratory Rate 22 07/09/24 20:30 Blood Pressure 178/84 H 07/09/24 20:30 Pulse Oximetry 98 07/09/24 20:30 Oxygen Delivery Method Room Air 07/09/24 20:30 Const General: cooperative and No ill appearing HENMT Head: normal to inspection Resp Effort & Inspection: normal respiratory effort Auscultation: clear to auscultation bilaterally Cardio Rate: regular rate Rhythm: regular rhythm Skin Other: Bruising located throughout his upper extremities most likely from his prior hospitalization/CVA Neuro General: patient alert and patient awake Extrem General: No edema Course Orders Ordered: ED Orders 07/09/24 20:33 EKG-12 Lead Stat 07/09/24 20:38 XR chest 1V Stat 07/09/24 20:40 Complete Blood Count AUTO DIFF Stat Comprehensive Metabolic Panel Stat Lipase Stat Magnesium Stat PTT Partial Thromboplastin Kiran Stat Prothrombin Time INR Stat Troponin & CK Cardiac Panel Stat Discontinued Medications Aspirin (Aspirin 81 Mg Chew Tab) 324 mg PO NOW ONE Stop: 07/09/24 20:39 Last Admin: 07/09/24 20:42 Dose: 324 mg Documented By: ARISTEO Heparin Sodium (Porcine) (Heparin 5,000 Unit/Ml Vial) 4,500 unit 60 unit/kg (4500 unit) IV NOW ONE Stop: 07/09/24 20:48 Last Admin: 07/09/24 20:50 Dose: 4,500 unit Documented By: ARISTEO Heparin Sodium/Dextrose (Heparin Drip) 25,000 unit in 500 mls @ 18.289 mls/hr IV CONT SONIA; Protocol Last Admin: 07/09/24 20:52 Dose: 12 units/kg/hr, 18.289 mls/hr Documented By: ARISTEO Co-signed By: CAROLYN Nitroglycerin (Nitroglycerin 0.4 Mg Sl Tab) 0.4 mg SL [id number] PRN PRN Reason: Chest Pain Last Admin: 07/09/24 20:53 Dose: 0.4 mg Documented By: Admin: 07/09/24 20:47 Dose: 0.4 mg Documented By: Admin: 07/09/24 20:42 Dose: 0.4 mg Documented By: ARISTEO Vital Signs Vital signs: Vital Signs - 8 hr 07/09/24 20:30 07/09/24 20:41 07/09/24 20:42 Temperature 98.4 F Pulse Rate 91 H 96 H 98 H Respiratory Rate 22 21 Blood Pressure 178/84 H 178/64 H Pulse Oximetry 98 98 Oxygen Delivery Method Room Air 07/09/24 20:47 07/09/24 20:47 07/09/24 20:47 Temperature Pulse Rate 93 H 96 H Respiratory Rate 21 Blood Pressure 152/78 H 152/78 H Pulse Oximetry 96 Oxygen Delivery Method 07/09/24 20:52 07/09/24 20:52 07/09/24 20:53 Temperature Pulse Rate 92 H 91 H Respiratory Rate 19 Blood Pressure 151/67 H 151/67 H Pulse Oximetry 93 Oxygen Delivery Method 07/09/24 21:00 07/09/24 21:00 07/09/24 21:04 Temperature Pulse Rate 95 H Respiratory Rate 20 Blood Pressure 137/65 139/67 Pulse Oximetry 94 Oxygen Delivery Method Room Air 07/09/24 21:04 Temperature Pulse Rate 98 H Respiratory Rate 20 Blood Pressure Pulse Oximetry 95 Oxygen Delivery Method Room Air Medical Decision Making Medical Records Medical records reviewed: Yes I reviewed the patient's medical records. Lab Data Lab results reviewed: Yes I reviewed the patient's lab results. 07/09/24 20:40 07/09/24 20:40 Labs: Lab Results 07/09/24 Range/Units 20:40 WBC 11.0 (4.5-11.0) X10^3/uL RBC 3.03 L (4.5-5.9) X10^6/uL Hgb 9.5 L (13.5-17.5) g/dL Hct 27.6 L (41-53) % MCV 91.2 (80-100) fL MCH 31.4 (26-34) PG MCHC 34.4 (30-36) % RDW 14.1 (11.6-14.8) % Plt Count 411 H (150-400) X10^3/uL Neut % (Auto) 74.7 (50-75) % Lymph % (Auto) 12.1 L (25-40) % [place] % (Auto) 10.2 (3-14) % Eos % (Auto) 2.4 (2-4) % Baso % (Auto) 0.6 (0-2) % Neut # (Auto) 8200 H (1058-2264) /uL Lymph # (Auto) 1300 (1916-7724) /uL [place] # (Auto) 1100 H (0-900) /uL Eos # (Auto) 300 (0-450) /uL Baso # (Auto) 100 (0-100) /uL PT 12.1 (9.4-12.5) SECONDS INR 1.1 (0.9-1.3) APTT 38 H (25.1-36.5) SECONDS Sodium 136 L (137-145) mmol/L Potassium 5.4 H (3.4-5.1) mmol/L Chloride 110 H (98-107) mmol/L Carbon Dioxide 15 L (22-32) mmol/L BUN 69 H (9-20) mg/dL Creatinine 2.80 H (0.66-1.25) mg/dL Estimated GFR 22 L (>60) mL/min BUN/Creatinine Ratio 24.6 H (6-22) Glucose 342 H (80-110) mg/dL Calcium 8.8 (8.4-10.2) mg/dL Magnesium 1.8 (1.6-2.3) mg/dL Total Bilirubin 0.7 (0.2-1.3) mg/dL AST 25 (17-59) IU/L ALT 32 (<50) IU/L Alkaline Phosphatase 144 H (38-126) U/L Total Creatine Kinase 64 (55-170) U/L Troponin I 0.202 H* (0.01-0.034) ng/mL Total Protein 7.5 (6.3-8.2) g/dL Albumin 3.9 (3.5-5.0) g/dL Globulin 3.6 (1.7-4.1) g/dL Albumin/Globulin Ratio 1.1 (1.0-2.8) Lipase 677 H (23-300) U/L Imaging Data Chest x-ray: My Impression: No acute changes, sternal wires in place Radiologist's Impression: PROCEDURE: XR CHEST 1V INDICATIONS: STEMI TECHNIQUE: One view of the chest was acquired. COMPARISON: [facility], , XR CHEST 1V, 06/26/2024, 16:37. FINDINGS: Surgical changes and devices: Sternal wires. Lungs and pleura: Lungs are clear. No pleural effusions or pneumothorax. Mediastinum: Mediastinal contours appear normal. Heart size is enlarged. Bones and chest wall: No suspicious bony lesions. Overlying soft tissues appear unremarkable. IMPRESSION: No acute pulmonary process. ECG Data Attestation: I personally reviewed and interpreted this ECG as follows: Interpretation: No prior EKG available Current EKG Sinus rhythm Ventricular rate of [address] elevations V1 V2 ST depressions and T-wave inversions leads 2 3 AVF V5 V6 Normal QRS MDM Narrative Medical decision making narrative: 83-year-old male who initially arrived for concerns of an acute urinary retention after having his Fenton catheter removed earlier today. A bladder scan does show that he was retaining urine so a Fenton catheter was placed. Upon triage he stated that he was having chest discomfort and neck discomfort. Subsequent EKGs concerning for ST-elevation CO. Chest x-ray shows no acute pathology. He was given aspirin. Was given nitro. Heparin was ordered. Discussed the case with Dr. Ambrose at [facility] in the emergency department who accepts the patient for transfer. Discussed the need for transfer with the patient and his . They expressed understanding and agreement with the plan. Critical Care Time Critical Care Time Critical Care Time: Yes Total Critical Care Time: 35 Attestation: The high probability of a clinically significant, sudden or life threatening deterioration of the [cardiovascular] system(s) required my full and direct attention, intervention and personal management. The aggregate critical care time was [35] minutes. This time is in addition to time spent performing reported procedures but includes the following: [x] Data Review and interpretation [x] Patient assessment and monitoring of vital signs [x] Documentation [x] Medication orders and management Discharge Plan Departure Patient Disposition: [facility] Clinical Impression: ST elevation (STEMI) myocardial infarction, Acute urinary retention Prescriptions: No Action hydrochlorothiazide 25 mg tablet 25 mg PO DAILY omega-3 fatty acids [Fish Oil Concentrate] 1,000 mg capsule 1,000 mg PO DAILY lisinopril 10 mg tablet 10 mg PO DAILY aspirin 81 mg Capsule 81 mg PO DAILY allopurinol 200 mg tablet 200 mg PO BID Qty: 14 0RF cephalexin 500 mg capsule 500 mg PO BID Qty: 14 0RF hydrocodone-acetaminophen 5-325 mg tablet 1 tab PO Q6H PRN (Reason: pain) Qty: 10 0RF amlodipine 2.5 mg tablet 2.5 mg PO DAILY glipizide 10 mg tablet 5 mg PO DAILY Referrals: Rush Jeffries MD [Primary Care Provider] -
[2024-07-09] MEDS: ASPIRIN 81 MG CHEW TAB 324 MG PO (20:42)
[2024-07-09] MEDS: NITROGLYCERIN 0.4 MG SL TAB SL ×3 (20:42→20:53)
--- NOTE | 2024-07-09 20:48 | PC.NURSE ---
Xray at bedside
[2024-07-09 20:49] LABS: Add Manual Diff / Slide Review NO; Basophils Absolute Auto 100 /uL (0-100); Basophils Percent Auto 0.6 % (0-2); Eosinophils Absolute Auto 300 /uL (0-450); Eosinophils Percent Auto 2.4 % (2-4); Hematocrit 27.6 % (41-53); Hemoglobin 9.5 g/dL (13.5-17.5); Lymphocytes Absolute Auto 1300 /uL (1100-4500); Lymphocytes Percent Auto 12.1 % (25-40); Mean Corpuscular HGB Conc 34.4 % (30-36); Mean Corpuscular Hemoglobin 31.4 PG (26-34); Mean Corpuscular Volume 91.2 fL (80-100); Monocytes Absolute Auto 1100 /uL (0-900); Monocytes Percent Auto 10.2 % (3-14); Neutrophils Absolute Auto 8200 /uL (1500-7000); Neutrophils Percent Auto 74.7 % (50-75); Platelet Count 411 X10^3/uL (150-400); Red Blood Cell Count 3.03 X10^6/uL (4.5-5.9); Red Cell Distribution Width 14.1 % (11.6-14.8)
[2024-07-09] MEDS: HEPARIN 5,000 UNIT/ML VIAL 4500 UNIT IV (20:50)
[2024-07-09] MEDS: HEPARIN DRIP 25,000 UNIT/500 ML IV.SOLN 18.289 UNIT IV (20:52)
[2024-07-09 20:58] LABS: INR 1.1 (0.9-1.3); Prothrombin Time 12.1 SECONDS (9.4-12.5)
[2024-07-09 21:00] LABS: PTT Partial Thromboplastin Tim 38 SECONDS (25.1-36.5)
[2024-07-09 21:03] LABS: Alanine Aminotransferase 32 IU/L (<50); Albumin 3.9 g/dL (3.5-5.0); Albumin Globulin Ratio 1.1 (1.0-2.8); Alkaline Phosphatase 144 U/L (38-126); Aspartate Aminotransferase 25 IU/L (17-59); BUN Creatinine Ratio 24.6 (6-22); Bilirubin Total 0.7 mg/dL (0.2-1.3); Blood Urea Nitrogen 69 mg/dL (9-20); Calcium 8.8 mg/dL (8.4-10.2); Carbon Dioxide 15 mmol/L (22-32); Chloride 110 mmol/L (98-107); Creatine Kinase 64 U/L (55-170); Estimated Glomerular Filt Rate 22 mL/min (>60); Globulin 3.6 g/dL (1.7-4.1); Glucose 342 mg/dL (80-110); HEMOLYSIS < 15 (0-50); Lipase 677 U/L (23-300); Magnesium 1.8 mg/dL (1.6-2.3); Sodium 136 mmol/L (137-145); Total Protein 7.5 g/dL (6.3-8.2)
[2024-07-09 21:04] LABS: Potassium 5.4 mmol/L (3.4-5.1)
[2024-07-09 21:19] LABS: Troponin I 0.202 ng/mL (0.01-0.034)
--- NOTE | 2024-08-25 16:11 | PC.NURSE ---
late entry per RN heparin drip was infusing at time of transfer to another facility.
== END 2024-07-09 21:14 | disposition short-term general hospital (02) ==
PROVIDERS: Emergency Provider Emergency Medicine; Family Provider Family Medicine; PCP Family Medicine
DX: I21.3 ST elevation (STEMI) myocardial infarction of unspecified site (principal); N39.0 Urinary tract infection, site not specified; M54.2 Cervicalgia; Z86.79 Personal history of other diseases of the circulatory system; E11.9 Type 2 diabetes mellitus without complications; I10 Essential (primary) hypertension; E78.5 Hyperlipidemia, unspecified
CPT/HCPCS: 36415; 71045; 80053; 82550; 83690; 83735; 84484; 85025; 85610; 85730; 93005; 96365; 96375; 99281; 99284; 99291; J1644